=== PATIENT | female | born 1955 | race Caucasian/White ===

== ENCOUNTER 2020-02-02 17:28 | Emergency (ER) | payer MEDICARE, SELFPAY ==
--- NOTE | 2020-02-02 17:37 | ED.UPPEXIN ---
HPI - Extremity Injury (Upper) General Chief Complaint: Extremity Injury, Upper Stated Complaint: Left Wrist injury Time Seen by Provider: 02/02/20 17:38 Source: patient and RN notes reviewed Related Data Home Medications Medication Instructions Recorded Confirmed amoxicillin-pot clavulanate 1 tablet PO BID 02/02/20 02/02/20 atorvastatin 40 mg PO DAILY 02/02/20 02/02/20 bupropion HCl 300 mg PO DAILY 02/02/20 02/02/20 escitalopram oxalate 20 mg PO DAILY 02/02/20 02/02/20 esomeprazole magnesium 20 mg PO DAILY 02/02/20 02/02/20 gabapentin 100 mg PO DIRECTED 02/02/20 02/02/20 insulin glargine [Lantus Solostar 18 unit SUBCUT DAILY 02/02/20 02/02/20 U-100 Insulin] metoprolol tartrate 25 mg PO DIRECTED 02/02/20 02/02/20 mirabegron [Myrbetriq] 50 mg PO DIRECTED 02/02/20 02/02/20 pregabalin 75 mg PO DIRECTED 02/02/20 02/02/20 rivaroxaban [Xarelto] 20 mg PO DIRECTED 02/02/20 02/02/20 spironolactone 25 mg PO DAILY 02/02/20 02/02/20 Allergies Allergy/AdvReac Type Severity Reaction Status Date / Time No Known Allergies Allergy Unverified 07/19/17 13:00 ON LICENSE OF [facility] Family History Family History (Updated 10/26/11 @ 07:49 by DOCTOR UNKNOWN) Other Diabetes mellitus Family history of arthritis Family history of cardiovascular disease Family history of kidney disease Social History Social History Smoking status: Never smoker Alcohol intake: never Discharge Plan Discharge Prescriptions: No Action atorvastatin 40 mg tablet 40 mg PO DAILY RF: 0 spironolactone 25 mg tablet 25 mg PO DAILY RF: 0 gabapentin 100 mg capsule 100 mg PO DIRECTED RF: 0 amoxicillin-pot clavulanate 875-125 mg tablet 1 tablet PO BID RF: 0 esomeprazole magnesium 20 mg capsule,delayed release(DR/EC) 20 mg PO DAILY RF: 0 escitalopram oxalate 20 mg tablet 20 mg PO DAILY RF: 0 bupropion HCl 300 mg tablet extended release 24 hr 300 mg PO DAILY RF: 0 metoprolol tartrate 25 mg tablet 25 mg PO DIRECTED RF: 0 pregabalin 75 mg capsule 75 mg PO DIRECTED RF: 0 Lantus Solostar U-100 Insulin 100 unit/mL (3 mL) insulin pen 18 unit SUBCUT DAILY RF: 0 Xarelto 20 mg tablet 20 mg PO DIRECTED RF: 0 Myrbetriq 50 mg tablet extended release 24 hr 50 mg PO DIRECTED RF: 0
== END 2020-02-02 17:32 | disposition left against medical advice (07) ==
PROVIDERS: Emergency Provider Internal Medicine Hematology & Oncology; PCP Family Medicine
DX: Z53.21 Procedure and treatment not carried out due to patient leaving prior to being seen by health care provider (principal)
CPT/HCPCS: 99199

== ENCOUNTER → 2020-02-02 17:38 | Outpatient (CLI) | payer MEDICARE, SELFPAY ==
--- NOTE | ~2020-02-02 | XR_ITS ---
EXAMINATION: XR wrist LT min 3V DATE: 02/02/2020 18:01 INDICATION: Left wrist injury. TECHNIQUE: 4 views of left wrist were obtained. COMPARISON: None. FINDINGS: Bone alignment is normal. No fracture. There is diffuse osteopenia. There is moderate osteo arthritis of first carpometacarpal joint. IMPRESSION: 1. Moderate osteoarthritis of first carpometacarpal joint. Reviewed, dictated and finalized at location A.
== END ==
PROVIDERS: PCP Family Medicine; Visit Provider Family Medicine
DX: M19.032 Primary osteoarthritis, left wrist (principal)
CPT/HCPCS: 73110

== ENCOUNTER 2020-08-06 17:25 | Emergency (ER) | payer MEDICARE, SELFPAY | END 2020-08-06 17:45 | disposition left against medical advice (07) | PROVIDERS: Emergency Provider Nurse Practitioner; PCP Family Medicine | DX: Z53.21 Procedure and treatment not carried out due to patient leaving prior to being seen by health care provider (principal) | CPT/HCPCS: 99199 ==

== ENCOUNTER → 2021-08-07 13:30 | Outpatient (CLI) | payer MEDICARE, SELFPAY ==
--- NOTE | ~2021-08-07 | XR_ITS ---
XR chest 2V DATE: 08/07/2021 14:53 INDICATION: Covid. TECHNIQUE: 2 views COMPARISON: None FINDINGS: Heart size appears within normal range. Aortic calcification. No pulmonary infiltrate or consolidation, pleural effusion or pulmonary vascular congestion or pneumo thorax is detected. Lap band apparatus is noted. There is diffuse osteopenia. Degenerative change of the thoracic and lumbar spine. IMPRESSION: No active cardiopulmonary disease Osteopenia Reviewed, dictated and finalized at location A. 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
--- NOTE | ~2021-08-07 | XR_ITS ---
EXAMINATION: HAND-AMILCAR ARTHRITIS 3+VIEWS DATE: 08/07/2021 14:54 INDICATION: Rheumatoid arthritis with bilateral hand pain. TECHNIQUE: Posteroanterior, lateral, and oblique views of the left and of the right hands as well as a ballcatchers view of both hands were obtained. COMPARISON: None. FINDINGS: Normal alignment at the bilateral hands and wrists. Diffuse osteopenia. No fracture. Polyarticular os teoarthritis throughout both hands and wrists. Joint space narrowing is of severity at the left mild at the right distal radioulnar and radiocarpal joints, moderate severity at the bilateral first carpo metacarpal joints. Additional mild to moderate joint space narrowing at multiple bilateral metacarpop halangeal and interphalangeal joints. At the more severely affected joints are some tiny marginal ost eophytes consistent with at least a component of osteoarthritis. The joint space narrowing at many of the metacarpophalangeal joints appears relatively uniform which could be related to reported history of rheumatoid arthritis although there are no evident erosions to more specifically suggest this. Th ere does appear to be some periarticular soft tissue swelling about the bilateral second metacarpopha langeal joints, right greater than left as well as at the right fifth metacarpophalangeal joint. Scat tered vascular calcifications along the bilateral radial and ulnar arteries. IMPRESSION: 1. Mild to moderate polyarticular arthritis at the bilateral hands and wrists which could be due to o steoarthritis or osteoarthritis superimposed on rheumatoid arthritis although there are no erosions t o more specifically suggest rheumatoid or other inflammatory arthritis. 2. Osteopenia. 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 Mild to moderate polyarticular arthritis at the bilateral hands and wrists w hich could be due to osteoarthritis or osteoarthritis superimposed on rheumatoi d arthritis although there are no erosions to more specifically suggest rheumat oid or other inflammatory arthritis. 2. Osteopenia.
== END ==
DX: M85.841 Other specified disorders of bone density and structure, right hand (principal); M85.842 Other specified disorders of bone density and structure, left hand; M85.88 Other specified disorders of bone density and structure, other site
CPT/HCPCS: 71046; 73130

== ENCOUNTER 2023-05-01 14:37 | Inpatient (IN) | payer MEDICARE, SELFPAY ==
[2023-05-01] VITALS (37 sets, daily range): BP systolic 102–122; BP diastolic 43–87; PULSE 60–77; RESP 14–25; TEMP 36.2–36.9; O2SAT 90–98; BMI 44.1
--- NOTE | ~2023-05-01 | XR_ITS ---
EXAMINATION: XR chest 1V DATE: 05/01/2023 15:26 INDICATION: Altered mental status. Hypoglycemia. TECHNIQUE: A single frontal view of the chest was obtained. COMPARISON: Chest 2 views 08/07/2021 FINDINGS: There is a diffuse interstitial pattern with fullness of the сергей, consistent with mild pul monary edema. No pleural effusion or pneumothorax. Cardiomegaly is noted. There is a lap band of the proximal stomach. IMPRESSION: 1. Mild pulmonary edema. 2. Cardiomegaly. Reviewed, dictated and finalized at location A.
--- NOTE | ~2023-05-01 | XR_ITS ---
EXAMINATION: XR humerus RT INDICATION: Right shoulder pain, initial encounter TECHNIQUE: Two views of the right humerus are obtained on three radiographs. COMPARISON: None available FINDINGS: The bones are osteopenic which limits the sensitivity for fracture however none is seen. Th ere is mild cranial migration of the humeral head with respect to the glenoid, suggestive of chronic rotator cuff tear. There is mild separation at the acromioclavicular joint. IMPRESSION: 1. No acute osseous abnormality identified, sensitivity limited by osteopenia.. Reviewed, dictated and finalized at location F.
--- NOTE | ~2023-05-01 | CT_ITS ---
EXAMINATION: CT brain wo con DATE: 05/01/2023 15:22 INDICATION: Altered mental status. TECHNIQUE: Computed tomography (CT) of the head was performed without intravenous contrast. The mA wa s adjusted according to patient size. Iterative reconstruction technique was employed. The dose-lengt h product was 681.00 mGy-cm. COMPARISON: None FINDINGS: There is no intracranial hemorrhage, acute infarction, or abnormal intracranial mass lesion . There are scattered areas of low attenuation in the cerebral white matter. The ventricles are beena l in size. There is mild mucosal thickening in the paranasal sinuses. There are likely changes of ocu lar lens replacement surgeries. The mastoid air cells are normal. IMPRESSION: 1. Mild nonspecific cerebral white matter disease, which likely represents chronic small vessel ische wendy disease. Reviewed, dictated and finalized at location A. IMPRESSION: 1. 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
--- NOTE | ~2023-05-01 | XR_ITS ---
EXAMINATION: XR sm bowel follow through DATE: 05/02/2023 16:30 INDICATION: Small bowel obstruction. TECHNIQUE: Oral contrast was administered, and a time course of radiographs of the abdomen was obtain ed. Fluoroscopy of the small bowel was not performed. Fluoroscopy exposure time was 0 minutes. The to jairo number of images was 11. COMPARISON: CT abdomen and pelvis 05/01/2023 FINDINGS: There is a lap band of the proximal stomach. The nasogastric tube tip is in the stomach. There are mu ltiple dilated loops of small bowel. Transit time from the stomach to proximal colon was approximatel y 4.5 hours. IMPRESSION: 1. Dilated small bowel with delayed passage of contrast to the colon, consistent with adynamic ileus versus partial small bowel obstruction. Reviewed, dictated and finalized at location A. IMPRESSION: 1. Dilated small bowel with delayed passage of contrast to the colon, consisten t with adynamic ileus versus partial small bowel obstruction.
--- NOTE | ~2023-05-01 | XR_ITS ---
EXAMINATION: XR abdomen gastric tube insert INDICATION: Nasogastric tube placement TECHNIQUE: Portable AP [id number] at 2149 hours COMPARISON: None available FINDINGS: The nasogastric tube is in the stomach. Heart and medical is noted. There is mild pulmonary edema of the visualized lung bases. IMPRESSION: 1. Nasogastric tube in the stomach. Reviewed, dictated and finalized at location F.
--- NOTE | ~2023-05-01 | CT_ITS ---
EXAMINATION: CT abdomen pelvis wo con DATE: 05/01/2023 17:58 INDICATION: Abdominal distention TECHNIQUE: Computed tomography (CT) of the abdomen and pelvis was performed without intravenous contr ast. The dose-length product (DLP) was 1351.64 mGy-cm. Automated exposure control and iterative recon struction technique were employed. COMPARISON: None FINDINGS: There is a 5 mm nodule of the right middle lobe. There is mild atelectasis of the visualize d lung bases. Cardiomegaly is noted. There are healed and healing fractures of multiple left ribs. A gastric lap band is noted. The liver, spleen, pancreas, and left adrenal gland are normal. There is a 10 mm low density mass of the right adrenal gland, consistent with an adenoma. The gallbladder is co mpletely decompressed or absent. There is atrophy of the kidneys which demonstrate multiple areas of cortical scarring. No pathologically enlarged abdominal or pelvic lymph nodes are identified. Colonic diverticulosis is present without evidence of diverticulitis. There are multiple mildly dilated loop s of small bowel with air-fluid levels. No free intraperitoneal gas is identified. There is calcified atherosclerosis of the aorta and many of the other arteries. There is severe lumbar spondylosis. The re is an age-indeterminate L2 burst fracture. There are bridging osteophytes at multiple levels in th e visualized lower thoracic spine, consistent with diffuse idiopathic skeletal hyperostosis (DISH). IMPRESSION: 1. Dilated small bowel, consistent with ileus versus obstruction. 2. Right middle lobe nodule. If the patient has no risk factors for malignancy, no further follow up is required. If there are risk factors for malignancy (i.e., history of smoking, asbestos or radiati on exposure), consider followup CT in 12 months. Reviewed, dictated and finalized at location F. IMPRESSION: 1. Dilated small bowel, consistent with ileus versus obstruction. 2. Right middle lobe nodule. If the patient has no risk factors for malignancy, no further follow up is required. If there are risk factors for malignancy (i .e., history of smoking, asbestos or radiation exposure), consider followup CT in 12 months.
--- NOTE | 2023-05-01 14:37 | PC.NURSE ---
patient received 350 D10 en route. last BS 212. patient lethargic.
--- NOTE | 2023-05-01 14:41 | ECG_ITS ---
Measurements Intervals [place] Rate: 64 P: VT: 0 QRS: -78 QRSD: 169 T: 41 QT: 501 QTc: 517 Interpretive Statements PROBABLE ATRIAL FIBRILLATION RIGHT BUNDLE BRANCH BLOCK [120+ ms QRS DURATION, UPRIGHT V1, 40+ ms S IN I/aVL/V4/V5/V6] INFERIOR MYOCARDIAL INFARCTION , POSSIBLY ACUTE [40+ ms Q WAVE AND/OR ST/T ABNORMALITY IN II/aVF] ANTEROLATERAL MYOCARDIAL INFARCTION , OF INDETERMINATE AGE [40+ ms Q WAVE IN I/aVL/V3- V6] ABNORMAL ECG NO PREVIOUS ECG AVAILABLE FOR COMPARISON Electronically Signed On 05-01-2023 15:47:35 CDT by Nav Villa M.D.
[2023-05-01 14:46] LABS: Glucose Point of Care 163 mg/dl (65-105)
--- NOTE | 2023-05-01 15:00 | ED.RECABL ---
HPI - Recheck/Abnormal Lab/Rx General Chief Complaint: Recheck/Abnormal Lab/Rx Stated Complaint: low blood sugar History of Present Illness HPI narrative: Patient is a 68-year-old female with history of AFib, diabetes here with altered mental status and hypoglycemia. Patient was reportedly noted to be more drowsy around 2:00 a.m. this afternoon. Her staff checked her blood sugar and it was in the 40s. They gave her some oral glucose and it seemed to be dropping lower and EMS was called. EMS provided D10 with improvement of her blood sugars into the 200s. Patient was noted at her facility to have vomited several times. Patient is alert to answer some questions and noting that she feels funny . She denies any shortness of breath, fever, chills, chest pain, abdominal pain. She states that she usually gives herself insulin, is unsure lot when she last gave it. She endorses weakness but states that it is throughout her entire body and not worse on one side or the other. She denies any falls. Related Data Home Medications Medication Instructions Recorded Confirmed amoxicillin 875 mg-potassium 1 tablet PO BID 02/02/20 02/02/20 clavulanate 125 mg tablet atorvastatin 40 mg tablet 40 mg PO DAILY 02/02/20 02/02/20 bupropion HCl 300 mg 24 hr tablet, 300 mg PO DAILY 02/02/20 02/02/20 extended release escitalopram oxalate 20 mg tablet 20 mg PO DAILY 02/02/20 02/02/20 esomeprazole magnesium 20 mg 20 mg PO DAILY 02/02/20 02/02/20 capsule,delayed release gabapentin 100 mg capsule 100 mg PO DIRECTED 02/02/20 02/02/20 insulin glargine 100 unit/mL (3 18 unit subcut DAILY 02/02/20 02/02/20 mL) subcutaneous pen (Lantus Solostar U-100 Insulin) metoprolol tartrate 25 mg tablet 25 mg PO DIRECTED 02/02/20 02/02/20 mirabegron 50 mg tablet,extended 50 mg PO DIRECTED 02/02/20 02/02/20 release 24 hr (Myrbetriq) pregabalin 75 mg capsule 75 mg PO DIRECTED 02/02/20 02/02/20 rivaroxaban 20 mg tablet (Xarelto) 20 mg PO DIRECTED 02/02/20 02/02/20 spironolactone 25 mg tablet 25 mg PO DAILY 02/02/20 02/02/20 Allergies Allergy/AdvReac Type Severity Reaction Status Date / Time No Known Allergies Allergy Unverified 07/19/17 13:00 Review of Systems Review of Systems: ROS unobtainable: Yes unobtainable due to medical condition PMFSH Past Medical History Medical History (Updated 05/01/23 @ 20:20 by Justina Rolle MD) Anxiety Insomnia Family History Family History (Updated 10/26/11 @ 07:49 by DOCTOR UNKNOWN) Other Diabetes mellitus Family history of arthritis Family history of cardiovascular disease Family history of kidney disease Social History Social History Smoking status: Never smoker Alcohol intake: never Exam Narrative: GENERAL: Drowsy, dried vomit over her face, is arousable to answer basic questions and give limited history. HEAD: Normocephalic, atraumatic. EYES: PERRLA and EOMI. ENT: Nares clear. Mucous membranes moist. NECK: Supple. CHEST: Clear to auscultation. No respiratory distress. HEART: Regular rate and rhythm. Normal peripheral pulses. ABDOMEN: Soft, nontender EXTREMITIES: Normal range of motion. No edema. SKIN: Warm, dry, no rash. NEURO: No focal deficits. Moves all extremities equally, no lateralizing deficits. Course Course Emergency Course: Patient seen evaluated on EMS arrival. She is drowsy but is able to answer some basic questions. She is here for hypoglycemia from her facility. Glucose read by EMS EN route. Workup for altered mental status ordered. Will follow her blood sugars closely. Repeat blood glucose in the 90s, will start on D5 infusion. Lab work reviewed, patient has white blood cell count of 16.4, creatinine of 2.1, no comparison on file. Initial troponin negative. CT head negative, chest x-ray shows some mild pulmonary edema, otherwise within normal limits. UA consistent with UTI. Will give gram of rocephin.
[2023-05-01 15:22] LABS: Hematocrit 29.9 % (37.0-47.0); Hemoglobin 9.4 g/dL (12.0-15.0); Mean Corpuscular HGB Conc 31.4 g/dl (32-36); Mean Corpuscular Hemoglobin 30.4 pg (26-34); Mean Corpuscular Volume 96.8 fl (80-100); Mean Platelet Volume 9.9 fl (7.4-10.4); Platelet Count Result 337 k/mm3 (150-375); Red Blood Count 3.09 M/mm3 (4.2-5.4); Red Cell Distribution Width 17.3 % (11.5-14.5); White Blood Count 16.4 K/mm3 (4.5-10.0)
[2023-05-01 15:30] LABS: Ammonia < 9 umol/L (9-30)
[2023-05-01 15:32] LABS: Alanine Aminotransferase 11 U/L (6-35); Albumin Level 3.6 g/dL (3.5-5.1); Alkaline Phosphatase 134 U/L (38-126); Anion Gap 11 mmol/L (8-16); Aspartate Amino Transferase 21 U/L (14-36); Bilirubin,Total 0.8 mg/dL (0.2-1.3); Blood Urea Nitrogen 46 mg/dL (7-17); Calcium 8.7 mg/dL (8.4-10.2); Carbon Dioxide 25 mmol/L (22-30); Chloride 94 mmol/L (98-107); Estimated Glomerular Filt Rate 23; Glucose 129 mg/dL (65-110); Potassium 4.2 mmol/L (3.4-5.0); Sodium 130 mmol/L (137-145)
[2023-05-01 15:40] LABS: Glucose Point of Care 95 mg/dl (65-105)
[2023-05-01 15:43] LABS: Troponin I 0.019 ng/mL (0.000-0.034)
[2023-05-01 15:46] LABS: Lymphocytes Absolute Manual 0.65 K/mm3 (1.1-4.5); Monocytes Absolute Manual 1.96 K/mm3 (0.1-0.90); Monocytes Percent Manual 12 % (3-9); Neutrophils Percent Manual 84 % (46-73); Platelet Estimate Adequate (Adequate); Schistocytes None Seen (NORMAL); Total Cells Counted 100
[2023-05-01 15:47] LABS: Anisocytosis 2+ (NORMAL); Hypochromasia 1+ (NORMAL)
--- NOTE | 2023-05-01 15:50 | ECG_ITS ---
Measurements Intervals [place] Rate: 71 P: [place]: 0 QRS: -81 QRSD: 166 T: 64 QT: 475 QTc: 518 Interpretive Statements ATRIAL FIBRILLATION RIGHT BUNDLE BRANCH BLOCK [120+ ms QRS DURATION, UPRIGHT V1, 40+ ms S IN I/aVL/V4/V5/V6] INFERIOR MYOCARDIAL INFARCTION , OF INDETERMINATE AGE [40+ ms Q WAVE AND/OR ST/T ABNORMALITY IN II/aVF] ANTEROLATERAL MYOCARDIAL INFARCTION , OF INDETERMINATE AGE [40+ ms Q WAVE IN I/aVL/V3- V6] ABNORMAL ECG COMPARED TO ECG 05/01/2023 14:44:17 NO SIGNIFICANT CHANGES Electronically Signed On 05-02-2023 8:57:27 CDT by Nav Villa M.D.
[2023-05-01] MEDS: DEXTROSE 5%/0.9% SOD CHL 1,000 ML 100 ML IV CONT (15:51)
[2023-05-01 16:01] LABS: Thyroid Stimulating Hormone 0.976 uIU/mL (0.465-4.680)
[2023-05-01 16:04] LABS: Appearance Urine Cloudy (Clear); Bacteria Urine 4+ /hpf; Bilirubin Urine Negative (Negative); Blood Urine Negative (Negative); Color Urine Yellow (Yellow); Glucose Urine UA Negative (Negative); Ketones Urine Negative (Negative); Leukocyte Esterase Ur 2+ LEU/UL (Negative); Nitrate Urine Negative (Negative); Protein Urine Negative (Negative); RBC Urine 0-2 /hpf (0-2); Specific Grav Ur 1.011 (1.001-1.035); Squamous Epithelial Cell Urine None seen /hpf (Few); WBC Urine >100 /hpf; pH Urine 5.5 (5.0-9.0)
[2023-05-01 16:10] LABS: Add Urine Microscopic? YES
[2023-05-01] MEDS: ACETAMINOPHEN 500 MG TABLET 1000 MG PO (18:06)
[2023-05-01 19:27] LABS: Glucose Point of Care 60 mg/dl (65-105)
[2023-05-01] MEDS: DEXTROSE 50% 25 GM/50 ML SYRINGE IV PUSH (19:40)
--- NOTE | 2023-05-01 20:14 | PM.IMHP ---
H&P: HPI History of Present Illness Date/Time: 05/01/23 20:14 Chief Complaint: AMS Narrative: This is a 68-year-old female with past medical history significant for atrial fibrillation rate controlled and anticoagulated, insulin-dependent diabetes mellitus, generalized anxiety disorder, dyslipidemia, COPD. Patient was brought for evaluation to the emergency room due to altered mental status patient is currently residing at a senior living/rehabilitation was found to have a blood glucose in the 40's in emergency room repeat blood glucose was again low. Preliminary workup was significant for urinalysis with numerous WBCs present, a CT of abdomen and pelvis showed ileus. Patient is unable to give any history due to confusion, obtundation, delirium. EXAMINATION: CT abdomen pelvis wo con DATE: 05/01/2023 17:58 INDICATION: Abdominal distention TECHNIQUE: Computed tomography (CT) of the abdomen and pelvis was performed without intravenous contrast. The dose-length product (DLP) was 1351.64 mGy-cm. Automated exposure control and iterative reconstruction technique were employed. COMPARISON: None FINDINGS: There is a 5 mm nodule of the right middle lobe. There is mild atelectasis of the visualized lung bases. Cardiomegaly is noted. There are healed and healing fractures of multiple left ribs. A gastric lap band is noted. The liver, spleen, pancreas, and left adrenal gland are normal. There is a 10 mm low density mass of the right adrenal gland, consistent with an adenoma. The gallbladder is completely decompressed or absent. There is atrophy of the kidneys which demonstrate multiple areas of cortical scarring. No pathologically enlarged abdominal or pelvic lymph nodes are identified. Colonic diverticulosis is present without evidence of diverticulitis. There are multiple mildly dilated loops of small bowel with air-fluid levels. No free intraperitoneal gas is identified. There is calcified atherosclerosis of the aorta and many of the other arteries. There is severe lumbar spondylosis. There is an age-indeterminate L2 burst fracture. There are bridging osteophytes at multiple levels in the visualized lower thoracic spine, consistent with diffuse idiopathic skeletal hyperostosis (DISH). IMPRESSION: 1. Dilated small bowel, consistent with ileus versus obstruction. 2. Right middle lobe nodule. If the patient has no risk factors for malignancy, no further follow up is required.? If there are risk factors for malignancy (i.e., history of smoking, asbestos or radiation exposure), consider followup CT in 12 months. EXAMINATION: CT brain wo con DATE: 05/01/2023 15:22 INDICATION: Altered mental status. TECHNIQUE: Computed tomography (CT) of the head was performed without intravenous contrast. The mA was adjusted according to patient size. Iterative reconstruction technique was employed. The dose-length product was 681.00 mGy-cm. COMPARISON: None FINDINGS: There is no intracranial hemorrhage, acute infarction, or abnormal intracranial mass lesion. There are scattered areas of low attenuation in the cerebral white matter. The ventricles are normal in size. There is mild mucosal thickening in the paranasal sinuses. There are likely changes of ocular lens replacement surgeries. The mastoid air cells are normal. IMPRESSION: 1. Mild nonspecific cerebral white matter disease, which likely represents chronic small vessel ischemic disease. EXAMINATION: XR chest 1V DATE: 05/01/2023 15:26 INDICATION: Altered mental status. Hypoglycemia. TECHNIQUE: A single frontal view of the chest was obtained. COMPARISON: Chest 2 views 08/07/2021 FINDINGS: There is a diffuse interstitial pattern with fullness of the сергей, consistent with mild pulmonary edema. No pleural effusion or pneumothorax. Cardiomegaly is noted. There is a lap band of the proximal stomach. IMPRESSION: 1. Mild pulmonary edema. 2. Cardiomegaly. Review of Systems Review of Systems: JAVON echevarria
[2023-05-01 22:19] LABS: Glucose Point of Care 92 mg/dl (65-105)
--- NOTE | 2023-05-01 22:55 | ADMGEN ---
[id number] This patient, Kimberley Sharma, was admitted to IMU Room 204-01. Patient/family oriented to hospital policies and general routines including ID bracelet, bed and alarms, visiting hours, pain management, procedures, bathroom and other care routines, personal items, smoking policy, room service/diet, and visiting hours. Information on how to activate the Rapid Response Team has been discussed. Patient/Family are encouraged to report perceived risks to care and to ask questions if they do not understand what they are told or what they should do.
[2023-05-02] VITALS (19 sets, daily range): BP systolic 109–141; BP diastolic 46–96; PULSE 63–100; RESP 16–20; TEMP 36.2–36.6; O2SAT 92–97
[2023-05-02 00:27] LABS: Glucose Point of Care 60 mg/dl (65-105)
[2023-05-02] MEDS: DEXTROSE 50% 25 GM/50 ML SYRINGE IV PUSH (00:40)
[2023-05-02] MEDS: DEXTROSE 10% 1,000 ML 100 ML IV CONT (00:40)
[2023-05-02 02:17] LABS: Glucose Point of Care 117 mg/dl (65-105)
[2023-05-02 04:32] LABS: Glucose Point of Care 122 mg/dl (65-105)
[2023-05-02 05:19] LABS: Basophils Percent Auto 0.3 % (0.2-1.2); Eosinophils Absolute Auto 0.1 K/mm3 (0-0.3); Hematocrit 28.8 % (37.0-47.0); Hemoglobin 9.1 g/dL (12.0-15.0); Immature Granulocyte Absolute 0.03 K/mm3 (0.00-0.031); Immature Granulocyte Percent A 0.3 % (0-0.5); Lymphocytes Percent Auto 11.6 % (18.3-44.2); Mean Corpuscular HGB Conc 31.6 g/dl (32-36); Mean Corpuscular Hemoglobin 29.6 pg (26-34); Mean Corpuscular Volume 93.8 fl (80-100); Mean Platelet Volume 10.1 fl (7.4-10.4); Monocytes Percent Auto 9.9 % (2.6-8.5); Neutrophils Absolute Auto 7.9 K/mm3 (1.3-6.7); Neutrophils Percent Auto 76.9 % (45.5-73.1); Platelet Count Result 346 k/mm3 (150-375); Red Blood Count 3.07 M/mm3 (4.2-5.4); Red Cell Distribution Width 17.1 % (11.5-14.5); White Blood Count 10.3 K/mm3 (4.5-10.0)
[2023-05-02 05:40] LABS: Anion Gap 10 mmol/L (8-16); Blood Urea Nitrogen 46 mg/dL (7-17); Calcium 8.5 mg/dL (8.4-10.2); Carbon Dioxide 25 mmol/L (22-30); Chloride 98 mmol/L (98-107); Estimated CRCL calculation 26 ml/min; Estimated Glomerular Filt Rate 25; Glucose 112 mg/dL (65-110); Potassium 3.8 mmol/L (3.4-5.0); Sodium 133 mmol/L (137-145)
[2023-05-02 05:49] LABS: Glucose Point of Care 128 mg/dl (65-105)
[2023-05-02 08:21] LABS: Glucose Point of Care 135 mg/dl (65-105)
[2023-05-02] MEDS: PANTOPRAZOLE SODIUM IV 40 MG VIAL IV PUSH (09:34)
--- NOTE | 2023-05-02 10:58 | PM.CNGS ---
Assessment and Plan Assessment and plan (1) Ileus: Code(s): K56.7 - Ileus, unspecified Status: Acute Assessment and Plan: CT showed dilated small bowel suggesting ileus versus small bowel obstruction. She had bowel function yesterday and was passing flatus overnight. This could be an ileus secondary to her urinary tract infection, but given her history of extensive abdominal surgeries and multiple recent hospitalizations for small bowel obstructions, we will get a water-soluble small bowel follow through today to further assess for an obstruction. She does not appear to have a high-grade small bowel obstruction, and she has no diffuse peritoneal signs on exam. Continue NG tube decompression, IV fluids, bowel rest, and analgesics for now while awaiting results of small bowel follow through. (2) Acute urinary tract infection: Code(s): N39.0 - Urinary tract infection, site not specified Status: Acute Assessment and Plan: Continue IV antibiotics per primary service. (3) Hypoglycemia: Code(s): E16.2 - Hypoglycemia, unspecified Status: Acute (4) Atrial fibrillation: Code(s): I48.91 - Unspecified atrial fibrillation Status: Chronic (5) Anticoagulant long-term use: Code(s): Z79.01 - halfway (current) use of anticoagulants Status: Acute Assessment and Plan: Xarelto currently on hold (6) Morbid obesity with BMI of 40.0-44.9, adult: Code(s): E66.01 - Morbid (severe) obesity due to excess calories; Z68.41 - Body mass index [BMI] 40.0-44.9, adult Status: Acute (7) Insulin dependent diabetes mellitus: Status: Chronic (8) Parkinson's disease: Code(s): G20.A1 - Parkinson's disease without dyskinesia, without mention of fluctuations Status: Chronic (9) Rheumatoid arthritis: Code(s): M06.9 - Rheumatoid arthritis, unspecified Status: Chronic (10) Immunosuppression due to drug therapy: Code(s): D84.821 - Immunodeficiency due to drugs; Z79.899 - Other group home (current) drug therapy Status: Chronic Plan I have discussed the patient's case and plan of care with Dr. Vale. Thank you for allowing us to see the patient in consultation and we will continue to follow along with you. History of Present Illness Consult details Consult date: 05/02/23 Reason for consult: other (Small-bowel obstruction versus ileus) Requesting physician: Justina Rolle MD Narrative: This is a 68-year-old woman who presented to the ER last night from a residential facility due to hypoglycemia and altered mental status. She has a history of multiple medical problems and is currently on Xarelto for chronic atrial fibrillation. Patient reports having 1 episode of diarrhea about a week ago, but otherwise her bowel movements normalized. She then had multiple episodes of vomiting 2 days ago. She reports this appeared bilious. Yesterday, she avoided the eating and tried taking in Ensure, which quickly vomited again. Denies any abdominal pain. At the residential facility, she appeared drowsy and staff checked her blood sugar and was found to be hypoglycemic. They gave her oral glucose and EMS was called. She was brought into the ER for further evaluation. In the ER, [place] [address], sodium 130, BUN 46, creatinine 2.1, glucose 129. Urinalysis suggests urinary tract infection. Head CT negative for any acute changes. Chest x-ray shows mild pulmonary edema, cardiomegaly. She appeared to have some abdominal distension and subsequently a CT of the abdomen and pelvis without contrast ordered. This showed dilated small bowel, consistent with ileus versus obstruction. Incidentally noted was a right middle lobe nodule. Our service was consulted by the ED physician. She had an NG tube placed in the ER. She has been admitted and started on IV antibiotics for the urinary tract infection. It appears she had
[2023-05-02 11:13] LABS: Glucose Point of Care 149 mg/dl (65-105)
--- NOTE | 2023-05-02 14:45 | PM.IMPN ---
Progress Note: A&P Assessment and Plan (1) Immunosuppression due to drug therapy: Code(s): D84.821 - Immunodeficiency due to drugs; Z79.899 - Other termite helper (current) drug therapy Status: Chronic (2) Rheumatoid arthritis: Code(s): M06.9 - Rheumatoid arthritis, unspecified Status: Chronic (3) Insulin dependent diabetes mellitus: Status: Chronic (4) Morbid obesity with BMI of 40.0-44.9, adult: Code(s): E66.01 - Morbid (severe) obesity due to excess calories; Z68.41 - Body mass index [BMI] 40.0-44.9, adult Status: Acute (5) Anticoagulant long-term use: Code(s): Z79.01 - terminal clerk (current) use of anticoagulants Status: Acute (6) Atrial fibrillation: Code(s): I48.91 - Unspecified atrial fibrillation Status: Chronic (7) AMS (altered mental status): Code(s): R41.82 - Altered mental status, unspecified Status: Acute (8) Hypoglycemia: Code(s): E16.2 - Hypoglycemia, unspecified Status: Acute (9) Acute urinary tract infection: Code(s): N39.0 - Urinary tract infection, site not specified Status: Acute (10) Ileus: Code(s): K56.7 - Ileus, unspecified Status: Acute Plan 68F w/ PMH morbid obesity, IDDM, anxiety, a fib on anticoagulation, RA on immunosuppression, parkinson's disease, presents with altered mental status from SNF. 1) altered mental status - likely 2/2 to UTI, hypoglycemia - resolved. CTM 2) hypoglycemia - she vomited once prior to presentation and then shortly after had hypoglycemia - cont d10 since she is NPO. accuchecks q2 hours. reevaluate after some time again - hold insulin 3) IDDDM - holding insulin - accuchecks 4) UTI w/ sespis w/o shock - pending urine cultures - ceftriaxone started 05/01 - WBC 16.4 --> 10.3 - check pro lacy in morning 5) Ileus vs SBO - vomited once prior to admission, but she denies any abdominal pain or nausea - general surgery consulted. currently with NG tube and awaiting small bowel follow through results - benign abdominal exam 6) a fib - start heparin tomorrow if still NPO - rate controlled FEN: NPO. D10. NG tube inserted GI prophylaxis: protonix DVT prophylaxis: ICD's, if still NPO by tomorrow place her on heparin gtt for stroke prophylaxis, for now HSC 5000 TID Lines: pIV Code Status: Full code Dispo: she was at rehab/SNF. she should likely return there and family was planning to get her to assisted living [facility] More than 35 minutes spent on chart review, patient interaction and assessment and plan. Subjective Date/time seen: 05/02/23 14:45 Interval history: NAOE. pt reports she feels normal. she doesn't remember being confused. she had vomited bile once before presenting. she denies SOB, chest pain, abdominal pain, nausea (she is hungry), diarrhea. Review of Systems Cardiovascular: Cardiovascular: Denies chest pain and Denies dyspnea Respiratory: Respiratory: Denies cough and Denies dyspnea Gastrointestinal: Gastrointestinal: Denies abdominal pain and Denies vomiting Exam Const: General: no acute distress, alert and Physically active Other: obese HENMT: Other: NG tube inserted Resp: Effort & Inspection: normal respiratory effort Auscultation: clear to auscultation bilaterally Cardio: Rate: regular rate Rhythm: regular rhythm Heart sounds: S1 normal heart sound present and S2 normal heart sound present GI: Inspection: non-distended GI Palp: No abdominal tenderness Auscultation: normal bowel sounds Extrem: Right upper extremity: no edema Objective Data Vital Signs Vital Signs: Vital Signs - 24 hr 05/01/23 15:03 05/01/23 15:25 05/01/23 15:38 Temperature Pulse Rate 62 66 65 Respiratory Rate 19 16 17 Blood Pressure Pulse Oximetry 91 96 Oxygen Delivery Oxygen Flow Rate Fraction of Inspired Oxygen 05/01/23 15:45 05/01/23 15:55 05/01/23 16:00 Temperature Pulse Rate 67 66 71
[2023-05-02 14:54] LABS: Glucose Point of Care 159 mg/dl (65-105)
[2023-05-02] MEDS: cefTRIAXone 2 GM/NS 100 ML 2 GM/100 ML BAG IVPB (15:15)
[2023-05-02] MEDS: DEXTROSE 5%/0.9% SOD CHL 1,000 ML 100 ML IV CONT (17:24)
[2023-05-02 18:39] LABS: Glucose Point of Care 173 mg/dl (65-105)
[2023-05-02 21:12] LABS: Glucose Point of Care 201 mg/dl (65-105)
[2023-05-02] MEDS: HEPARIN SODIUM 5,000 UNITS/ML VIAL 5000 UNITS SUB-Q (21:42)
[2023-05-02 22:22] LABS: Glucose Point of Care 197 mg/dl (65-105)
[2023-05-03] VITALS (14 sets, daily range): BP systolic 119–147; BP diastolic 51–75; PULSE 75–104; RESP 16–20; TEMP 36.1–36.8; O2SAT 90–99
[2023-05-03] MEDS: DEXTROSE 5% 1,000 ML 1,000 ML 100 ML IVPB (02:56)
[2023-05-03] MEDS: DEXTROSE 5%/0.9% SOD CHL 1,000 ML 100 ML IV CONT (03:00)
[2023-05-03 04:57] LABS: Basophils Absolute Auto 0.1 K/mm3 (0.0-0.1); Basophils Percent Auto 0.7 % (0.2-1.2); Eosinophils Absolute Auto 0.1 K/mm3 (0-0.3); Eosinophils Percent Auto 1.3 % (0-4.4); Hematocrit 26.6 % (37.0-47.0); Hemoglobin 8.3 g/dL (12.0-15.0); Immature Granulocyte Absolute 0.05 K/mm3 (0.00-0.031); Immature Granulocyte Percent A 0.6 % (0-0.5); Lymphocytes Absolute Auto 1.23 K/mm3 (0.9-3.2); Lymphocytes Percent Auto 13.6 % (18.3-44.2); Mean Corpuscular HGB Conc 31.2 g/dl (32-36); Mean Platelet Volume 9.9 fl (7.4-10.4); Monocytes Absolute Auto 0.9 K/mm3 (0.1-0.6); Monocytes Percent Auto 10.4 % (2.6-8.5); Neutrophils Absolute Auto 6.6 K/mm3 (1.3-6.7); Neutrophils Percent Auto 73.4 % (45.5-73.1); Platelet Count Result 321 k/mm3 (150-375); Red Blood Count 2.77 M/mm3 (4.2-5.4); Red Cell Distribution Width 17.2 % (11.5-14.5)
[2023-05-03 05:08] LABS: Anion Gap 4 mmol/L (8-16); Blood Urea Nitrogen 33 mg/dL (7-17); Calcium 8.7 mg/dL (8.4-10.2); Carbon Dioxide 28 mmol/L (22-30); Chloride 104 mmol/L (98-107); Estimated CRCL calculation 32 ml/min; Estimated Glomerular Filt Rate 32; Glucose 144 mg/dL (65-110); Magnesium 1.8 mg/dL (1.6-2.3); Phosphorus 3.2 mg/dL (2.5-4.5); Potassium 3.4 mmol/L (3.4-5.0); Sodium 136 mmol/L (137-145)
[2023-05-03 05:19] LABS: Procalcitonin 0.1 ng/mL
[2023-05-03] MEDS: HEPARIN SODIUM 5,000 UNITS/ML VIAL 5000 UNITS SUB-Q ×2 (05:39→14:08)
[2023-05-03] MEDS: PANTOPRAZOLE SODIUM IV 40 MG VIAL IV PUSH (08:50)
[2023-05-03 11:44] LABS: Glucose Point of Care 303 mg/dl (65-105)
[2023-05-03] MEDS: POTASSIUM CHLORIDE 20 MEQ PACKET (FOR LIQUID) 40 MEQ PO (12:21)
--- NOTE | 2023-05-03 14:14 | PM.PNGS ---
Progress Note: A&P Assessment and Plan (1) Ileus: Code(s): K56.7 - Ileus, unspecified Status: Acute Assessment and Plan: Patient most likely had a small bowel ileus due to her urinary tract infection. No obvious evidence of a high-grade mechanical small bowel obstruction is seen on small-bowel series. She is now having multiple bowel movements and tolerating diet. No surgical intervention is needed. Disposition as per hospitalist service. Surgery will sign off. Subjective Subjective Date/Time Seen: 05/03/23 14:14 Interval history: Patient is doing very well today. She is starting to have bowel movements. Multiple bowel movements today. She tolerated full liquids and then regular food for lunch. Small bowel series yesterday showed transit of contrast into the colon at 4.5hours which was delayed but showed no evidence of high-grade obstruction. White blood cell count is normal today and she is afebrile. She has no complaints of abdominal pain. Exam GI: Other: Abdomen is soft and nondistended. Nontender. Exam is benign. Objective Data Vital Signs Vital Signs: Vital Signs - 24 hr 05/02/23 15:49 05/02/23 16:00 05/02/23 16:00 Temperature 36.4 C L Pulse Rate 75 88 Respiratory Rate 20 Blood Pressure 139/96 H Pulse Oximetry 94 Oxygen Delivery Room Air Oxygen Flow Rate 05/02/23 18:00 05/02/23 19:54 05/02/23 20:00 Temperature 36.6 C Pulse Rate 97 89 89 Respiratory Rate 16 16 Blood Pressure 141/72 H Pulse Oximetry 92 92 Oxygen Delivery Room Air Oxygen Flow Rate 05/02/23 20:00 05/02/23 22:00 05/02/23 23:32 Temperature 36.2 C L Pulse Rate 94 100 96 Respiratory Rate 18 Blood Pressure 127/53 L Pulse Oximetry 92 Oxygen Delivery Oxygen Flow Rate 05/03/23 00:00 05/03/23 00:00 05/03/23 02:00 Temperature Pulse Rate 96 91 100 Respiratory Rate 18 Blood Pressure Pulse Oximetry 92 Oxygen Delivery Room Air Oxygen Flow Rate 05/03/23 04:00 05/03/23 04:00 05/03/23 04:00 Temperature 36.4 C Pulse Rate 77 77 75 Respiratory Rate 18 18 Blood Pressure 121/51 L Pulse Oximetry 94 94 Oxygen Delivery Room Air Oxygen Flow Rate 05/03/23 06:07 05/03/23 07:28 05/03/23 11:19 Temperature 36.7 C 36.8 C Pulse Rate 80 87 81 Respiratory Rate 16 19 Blood Pressure 132/59 L 147/63 H Pulse Oximetry 90 99 Oxygen Delivery Oxygen Flow Rate 05/03/23 08:00 05/03/23 08:00 05/03/23 10:00 Temperature Pulse Rate 83 91 Respiratory Rate Blood Pressure Pulse Oximetry 92 Oxygen Delivery Nasal Cannula Oxygen Flow Rate 2 05/03/23 12:00 05/03/23 12:00 05/03/23 14:00 Temperature Pulse Rate 82 84 Respiratory Rate Blood Pressure Pulse Oximetry 95 Oxygen Delivery Nasal Cannula Oxygen Flow Rate 2 Intake/Output Intake/Output: Intake & Output 04/30/23 05/01/23 05/02/23 05/03/23 23:59 23:59 23:59 23:59 Intake Total 50 1100 3520 Output Total 400 300 Balance -350 1100 3220 Meds/Results Medications: Active Medications Generic Name Dose Route Start Last Admin Trade Name Freq PRN Reason Stop Dose Admin Albuterol 2 puff 05/02/23 00:31 Albuterol Sulfate (*Sp) Aerosol 1 Puff INHALATION QID PRN Wheezing Dextrose 12.5 gm 05/02/23 00:33 Dextrose 50% 25 Gm/50 Ml Syringe IV PUSH PRN PRN Hypoglycemia Protocol Glucagon 1 mg 05/02/23 00:33 Glucagon For Inj 1 Mg Vial IM PRN PRN Hypoglycemia Protocol Glucose 15 gm 05/02/23 00:33 Glucose Oral Gel 15 Gm Of Glucse In 37.5 Gm Tube PO PRN PRN Hypoglycemia Protocol Heparin Sodium (Porcine) 5,000 units 05/02/23 22:00 05/03/23 14:08 Heparin Sodium 5,000 Units/Ml Vial SUB-Q 5,000 units Q8HR STEVEN Administration Dextrose 1,000 mls @ 100 mls/hr 05/02/23 00:33 05/03/23 02:56 Dextrose 5% 1,000 Ml IVPB 100 mls/hr PRN PRN Administration
[2023-05-03] MEDS: cefTRIAXone 2 GM/NS 100 ML 2 GM/100 ML BAG IVPB (14:16)
[2023-05-03 14:19] LABS: Glucose Point of Care 264 mg/dl (65-105)
--- NOTE | 2023-05-03 15:35 | PM.IMPN ---
Progress Note: A&P Assessment and Plan (1) Immunosuppression due to drug therapy: Code(s): D84.821 - Immunodeficiency due to drugs; Z79.899 - Other watermaster (current) drug therapy Status: Chronic (2) Rheumatoid arthritis: Code(s): M06.9 - Rheumatoid arthritis, unspecified Status: Chronic (3) Parkinson's disease: Code(s): G20.A1 - Parkinson's disease without dyskinesia, without mention of fluctuations Status: Chronic (4) Insulin dependent diabetes mellitus: Status: Chronic (5) Ileus: Code(s): K56.7 - Ileus, unspecified Status: Acute Plan 68F w/ PMH morbid obesity, IDDM, anxiety, a fib on anticoagulation, RA on immunosuppression, parkinson's disease, presents with altered mental status from SNF. 1) altered mental status - likely 2/2 to UTI, hypoglycemia - resolved. CTM 2) hypoglycemia, IDDM - she vomited once prior to presentation and then shortly after had hypoglycemia - resolved. LDISS started with accuchecks. she is eating plenty 3) UTI w/ sespis w/o shock - pending urine cultures - ceftriaxone started 05/01 - WBC 16.4 --> 10.3 - discharge on PO abx. improved 5) Ileus - vomited once prior to admission, but she denies any abdominal pain or nausea - general surgery consulted. NG tube placed and removed. she is passing stool and tolerating diet - benign abdominal exam 6) a fib - restart AC on 05/03 - rate controlled 05/03 restart all home meds since NG tube is out and she's tolerating diet FEN: diabetic diet. saline lock IV GI prophylaxis: protonix DVT prophylaxis: ICD's and her usual AC Lines: pIV Code Status: Full code she is returning to rehab tomorrow pending insurance auth Subjective Date/time seen: 05/03/23 15:35 Interval history: NAOE. pt is tolerating diet, and having BM's. NG tube out. surgery cleared her for discharge. she has no complaints Review of Systems Review of Systems: All systems reviewed & are unremarkable except as noted in HPI and below Exam Const: General: comfortable and no acute distress Eyes: Pupils: Equal, round and reactive pupils present Resp: Effort & Inspection: normal respiratory effort Auscultation: clear to auscultation bilaterally Cardio: Rate: regular rate Rhythm: regular rhythm GI: Inspection: non-distended GI Palp: Yes Soft to palpation and No Tenderness to palpation present (GI) Extrem: General: no edema Objective Data Vital Signs Vital Signs: Vital Signs - 24 hr 05/02/23 15:49 05/02/23 16:00 05/02/23 16:00 Temperature 97.5 F L Pulse Rate 75 88 Respiratory Rate 20 Blood Pressure 139/96 H Pulse Oximetry 94 Oxygen Delivery Room Air Oxygen Flow Rate 05/02/23 18:00 05/02/23 19:54 05/02/23 20:00 Temperature 98 F Pulse Rate 97 89 89 Respiratory Rate 16 16 Blood Pressure 141/72 H Pulse Oximetry 92 92 Oxygen Delivery Room Air Oxygen Flow Rate 05/02/23 20:00 05/02/23 22:00 05/02/23 23:32 Temperature 97.2 F L Pulse Rate 94 100 96 Respiratory Rate 18 Blood Pressure 127/53 L Pulse Oximetry 92 Oxygen Delivery Oxygen Flow Rate 05/03/23 00:00 05/03/23 00:00 05/03/23 02:00 Temperature Pulse Rate 96 91 100 Respiratory Rate 18 Blood Pressure Pulse Oximetry 92 Oxygen Delivery Room Air Oxygen Flow Rate 05/03/23 04:00 05/03/23 04:00 05/03/23 04:00 Temperature 97.6 F Pulse Rate 77 77 75 Respiratory Rate 18 18 Blood Pressure 121/51 L Pulse Oximetry 94 94 Oxygen Delivery Room Air Oxygen Flow Rate 05/03/23 06:07 05/03/23 07:28 05/03/23 11:19 Temperature 98.1 F 98.3 F Pulse Rate 80 87 81 Respiratory Rate 16 19 Blood Pressure 132/59 L 147/63 H Pulse Oximetry 90 99 Oxygen Delivery Oxygen Flow Rate 05/03/23 08:00 05/03/23 08:00 05/03/23 10:00 Temperature Pulse Rate 83 91 Respiratory Rate Blood Pressure Pulse Oximetry 92 Oxygen Delivery Nasal Cannula Oxygen Flow Ra
[2023-05-03 16:12] LABS: Glucose Point of Care 251 mg/dl (65-105)
[2023-05-03] MEDS: CARBIDOPA/LEVODOPA 25/100 MG CR TABLET 1 TABLET PO (16:53)
[2023-05-03] MEDS: FUROSEMIDE 20 MG TABLET PO (16:53)
[2023-05-03] MEDS: RIVAROXABAN 20 MG TABLET PO (16:53)
[2023-05-03] MEDS: GABAPENTIN 100 MG CAPSULE PO (16:53)
[2023-05-03] MEDS: INSULIN ASPART (*BKC) 100 UNITS/ML SUB-Q ×2 (16:54→20:25)
[2023-05-03] MEDS: HYDROXYCHLOROQUINE SULFATE 200 MG TABLET PO (17:01)
--- NOTE | 2023-05-03 17:36 | PC.NURSE ---
Pt received from IMU at 17:35. Pt oriented to unit policy and procedures.
--- NOTE | 2023-05-03 17:45 | PC.NURSE ---
This patient, Kimberley Sharma, was transferred to [[facility]- ] on 05/03/23 at 1727. Personal belongings sent with patient. Appropriate documentation sent with patient.
[2023-05-03] MEDS: ACETAMINOPHEN 325 MG TABLET 650 MG PO (18:53)
[2023-05-03] MEDS: clonazePAM (*CRX) 0.5 MG TABLET PO (20:24)
[2023-05-03 21:02] LABS: Glucose Point of Care 147 mg/dl (65-105)
[2023-05-03 21:11] LABS: Glucose Point of Care 170 mg/dl (65-105)
[2023-05-04 06:00] VITALS: BP 126/60; PULSE 76; RESP 18; TEMP 36.3; O2SAT 93
[2023-05-04 07:42] LABS: Glucose Point of Care 115 mg/dl (65-105)
[2023-05-04] MEDS: CARBIDOPA/LEVODOPA 25/100 MG CR TABLET 1 TABLET PO ×3 (09:14→16:38)
[2023-05-04] MEDS: SPIRONOLACTONE 25 MG TABLET PO (09:15)
[2023-05-04] MEDS: buPROPion HCL XL (24 HR) 150 MG TABCR 300 MG PO (09:15)
[2023-05-04] MEDS: GABAPENTIN 100 MG CAPSULE PO ×2 (09:15→16:38)
[2023-05-04] MEDS: HYDROXYCHLOROQUINE SULFATE 200 MG TABLET PO ×2 (09:15→16:38)
[2023-05-04] MEDS: MIRABEGRON 25 MG ER TABLET PO (09:15)
[2023-05-04] MEDS: dilTIAZem HCL CD 240 MG CAP.24HR PO (09:15)
[2023-05-04] MEDS: FUROSEMIDE 20 MG TABLET PO ×2 (09:15→16:38)
[2023-05-04] MEDS: PANTOPRAZOLE SODIUM IV 40 MG VIAL IV PUSH (09:17)
[2023-05-04] MEDS: INSULIN GLARGINE (*BKC) 100 UNITS/ML 18 UNITS SUB-Q (09:18)
--- NOTE | 2023-05-04 11:46 | PM.DS ---
DS: Admitting Diagnosis Discharge Date 05/04 Admitting Diagnosis hypoglycemia and AMS DS: Discharge Diagnosis Discharge Diagnosis (1) Morbid obesity with BMI of 40.0-44.9, adult: Code(s): E66.01 - Morbid (severe) obesity due to excess calories; Z68.41 - Body mass index [BMI] 40.0-44.9, adult Status: Acute (2) Insulin dependent diabetes mellitus: Status: Chronic (3) Parkinson's disease: Code(s): G20.A1 - Parkinson's disease without dyskinesia, without mention of fluctuations Status: Chronic (4) Rheumatoid arthritis: Code(s): M06.9 - Rheumatoid arthritis, unspecified Status: Chronic (5) Immunosuppression due to drug therapy: Code(s): D84.821 - Immunodeficiency due to drugs; Z79.899 - Other terminal manager (current) drug therapy Status: Chronic (6) AMS (altered mental status): Code(s): R41.82 - Altered mental status, unspecified Status: Acute (7) Hypoglycemia: Code(s): E16.2 - Hypoglycemia, unspecified Status: Acute (8) Atrial fibrillation: Code(s): I48.91 - Unspecified atrial fibrillation Status: Chronic (9) Ileus: Code(s): K56.7 - Ileus, unspecified Status: Acute DS: Summary Hospital Course Hospital Course: 68F w/ PMH morbid obesity, IDDM, anxiety, a fib on anticoagulation, RA on immunosuppression, parkinson's disease, presents with altered mental status from SNF. She vomited at the [facility], then shortly after developed hypoglycemia and altered mental status. During her stay she was given D5 then D10 and her hypoglycemia and AMS resolved. She was also treated for UTI with ceftriaxone and her sepsis resolved. DC on 3 more days of keflex. concurrently, she was found to have ileus vs SBO on Ct scan. surgery consulted. NG tube placed and removed. she likely did not have complete SBO. tolerating diet and having good BMs on 05/04 therefore she will be discharged [facility] in [facility] condition. Full Code. Time Spent with Patient Time attestation: Total time spent providing and/or coordinating discharge services: Exam Const: General: comfortable and no acute distress Eyes: Pupils: Equal, round and reactive pupils present Resp: Effort & Inspection: normal respiratory effort Cardio: Rate: regular rate Rhythm: regular rhythm GI: Inspection: non-distended GI Palp: Yes Soft to palpation, No Firmness to palpation present (GI), No Tenderness to palpation present (GI) and No Guarding due to palpation present (GI) Auscultation: normal bowel sounds Extrem: General: no edema DS: Data Data Completed and Pending Labs on day of discharge: Labs from last 24 hours 05/04/23 05/03/23 05/03/23 07:31 21:08 20:01 POC Capillary Glucose 115 H 170 H 147 H 05/03/23 05/03/23 16:04 14:09 POC Capillary Glucose 251 H 264 H Discharge Plan Discharge Attending physician on discharge: Lyssa Carbajal Consulting providers: Radha Aguilar Discharging Clinician: Lyssa Carbajal Patient Disposition: SNF Activity: may shower Diet: as tolerated Discharge Instructions: Hypoglycemia Patient Instructions: Rivaroxaban (By mouth), Heart Failure (IP) Stand Alone Forms: General Discharge Information Discharge Medications: Continued atorvastatin 40 mg tablet 40 mg PO DAILY spironolactone 25 mg tablet 25 mg PO DAILY gabapentin 100 mg capsule 100 mg PO BID bupropion HCl 300 mg tablet extended release 24 hr 300 mg PO DAILY insulin glargine [Lantus Solostar U-100 Insulin] 100 unit/mL (3 mL) insulin pen 18 unit SUBCUT DAILY Xarelto 20 mg tablet 20 mg PO DAILY Myrbetriq 50 mg tablet extended release 24 hr 25 mg PO DAILY furosemide 40 mg tablet 20 mg PO BID cyanocobalamin (vitamin B-12) 1,000 mcg Tablet 1,000 mcg PO DAILY diltiazem HCl 240 mg capsule,extended release 24 hr 240 mg PO DAILY allopurinol 100
[2023-05-04 11:48] LABS: Glucose Point of Care 226 mg/dl (65-105)
[2023-05-04] MEDS: INSULIN ASPART (*BKC) 100 UNITS/ML SUB-Q (13:25)
[2023-05-04 14:00] VITALS: BP 118/50; PULSE 81; RESP 22; TEMP 36.8; O2SAT 94
[2023-05-04 16:30] LABS: Glucose Point of Care 108 mg/dl (65-105)
[2023-05-04] MEDS: RIVAROXABAN 20 MG TABLET PO (16:38)
[2023-05-04] MEDS: cefTRIAXone 2 GM/NS 100 ML 2 GM/100 ML BAG IVPB (16:40)
[2023-05-04 22:00] VITALS: BP 132/72; PULSE 78; RESP 14; TEMP 35.9; O2SAT 96
[2023-05-04 22:23] LABS: Glucose Point of Care 162 mg/dl (65-105)
[2023-05-05 05:56] VITALS: BP 126/51; PULSE 84; RESP 18; TEMP 36.1; O2SAT 95
[2023-05-05 07:37] LABS: Glucose Point of Care 112 mg/dl (65-105)
[2023-05-05] MEDS: INSULIN GLARGINE (*BKC) 100 UNITS/ML 18 UNITS SUB-Q (08:46)
[2023-05-05] MEDS: HYDROXYCHLOROQUINE SULFATE 200 MG TABLET PO ×2 (08:48→17:57)
[2023-05-05] MEDS: buPROPion HCL XL (24 HR) 150 MG TABCR 300 MG PO (08:48)
[2023-05-05] MEDS: FUROSEMIDE 20 MG TABLET PO ×2 (08:48→17:57)
[2023-05-05] MEDS: dilTIAZem HCL CD 240 MG CAP.24HR PO (08:48)
[2023-05-05] MEDS: SPIRONOLACTONE 25 MG TABLET PO (08:48)
[2023-05-05] MEDS: CARBIDOPA/LEVODOPA 25/100 MG CR TABLET 1 TABLET PO ×3 (08:48→17:57)
[2023-05-05] MEDS: GABAPENTIN 100 MG CAPSULE PO ×2 (08:48→17:57)
[2023-05-05] MEDS: MIRABEGRON 25 MG ER TABLET PO (08:48)
[2023-05-05] MEDS: PANTOPRAZOLE SODIUM IV 40 MG VIAL IV PUSH (08:58)
--- NOTE | 2023-05-05 10:01 | PM.IMPN ---
Progress Note: A&P Assessment and Plan (1) Rheumatoid arthritis: Code(s): M06.9 - Rheumatoid arthritis, unspecified Status: Chronic (2) Parkinson's disease: Code(s): G20.A1 - Parkinson's disease without dyskinesia, without mention of fluctuations Status: Chronic (3) Insulin dependent diabetes mellitus: Status: Chronic (4) Morbid obesity with BMI of 40.0-44.9, adult: Code(s): E66.01 - Morbid (severe) obesity due to excess calories; Z68.41 - Body mass index [BMI] 40.0-44.9, adult Status: Acute (5) Ileus: Code(s): K56.7 - Ileus, unspecified Status: Acute (6) Hypoglycemia: Code(s): E16.2 - Hypoglycemia, unspecified Status: Acute Plan 68F w/ PMH morbid obesity, IDDM, anxiety, a fib on anticoagulation, RA on immunosuppression, parkinson's disease, presents with altered mental status from SNF. She vomited at the [facility], then shortly after developed hypoglycemia and altered mental status. hypoglycemia resolved. ileus/sbo resolved. tolerating diet awaiting insurance clearance to return to rehab. cardiac diet on protonix on xarelto Full Code. Subjective Date/time seen: 05/05/23 10:01 Interval history: NAOE. pt is without complaints Review of Systems Review of Systems: All systems reviewed & are unremarkable except as noted in HPI and below Exam Const: General: comfortable Resp: Effort & Inspection: normal respiratory effort Cardio: Rate: regular rate Rhythm: regular rhythm GI: Inspection: non-distended Auscultation: normal bowel sounds Objective Data Vital Signs Vital Signs: Vital Signs - 24 hr 05/04/23 14:00 05/04/23 20:00 05/04/23 22:00 Temperature 98.3 F 96.7 F L Pulse Rate 81 78 Respiratory Rate 22 H 14 Blood Pressure 118/50 L 132/72 Pulse Oximetry 94 96 Oxygen Delivery Room Air 05/05/23 05:56 05/05/23 08:00 Temperature 97.0 F L Pulse Rate 84 Respiratory Rate 18 Blood Pressure 126/51 L Pulse Oximetry 95 Oxygen Delivery Room Air Intake/Output Intake/Output: Intake & Output 05/02/23 05/03/23 05/04/23 05/05/23 23:59 23:59 23:59 23:59 Intake Total 1100 4600 2326 958 Output Total 300 Balance 1100 4300 2326 958 Meds/Results Medications: Active Medications Generic Name Dose Route Start Last Admin Trade Name Freq PRN Reason Stop Dose Admin Acetaminophen 650 mg 05/03/23 15:19 05/03/23 18:53 Acetaminophen 325 Mg Tablet PO 650 mg Q6H PRN Administration Mild Pain (1-3) or Fever Albuterol 2 puff 05/02/23 00:31 Albuterol Sulfate (*Sp) Aerosol 1 Puff INHALATION QID PRN Wheezing Bupropion HCl 300 mg 05/04/23 09:00 05/05/23 08:48 Bupropion Hcl Xl (24 Hr) 150 Mg Tabcr PO 300 mg QAM STEVEN Administration Carbidopa/Levodopa 1 tablet 05/03/23 17:00 05/05/23 08:48 Carbidopa/Levodopa 25/100 Mg Cr Tablet PO 1 tablet TID STEVEN Administration Clonazepam 0.5 mg 05/03/23 15:44 05/03/23 20:24 Clonazepam (*Crx) 0.5 Mg Tablet PO 0.5 mg QHS PRN Administration Anxiety Dextrose 12.5 gm 05/02/23 00:33 Dextrose 50% 25 Gm/50 Ml Syringe IV PUSH PRN PRN Hypoglycemia Protocol Diltiazem HCl 240 mg 05/04/23 09:00 05/05/23 08:48 Diltiazem Hcl Cd 240 Mg Cap.24hr PO 240 mg QAM STEVEN Administration Furosemide 20 mg 05/03/23 17:00 05/05/23 08:48 Furosemide 20 Mg Tablet PO 20 mg BID STEVEN Administration Gabapentin 100 mg 05/03/23 17:00 05/05/23 08:48 Gabapentin 100 Mg Capsule PO 100 mg BID STEVEN Administration Glucagon 1 mg 05/02/23 00:33 Glucagon For Inj 1 Mg Vial IM PRN PRN Hypoglycemia Protocol Glucose 15 gm 05/02/23 00:33 Glucose Oral Gel 15 Gm Of Glucse In 37.5 Gm Tube PO PRN PRN Hypoglycemia Protocol Hydroxychloroquine Sulfate 200 mg 05/03/23 17:00 05/05/23 08:48 Hydroxychloroquine Sulfate 200 Mg Tablet PO 05/07/23 09:01 200 mg B
[2023-05-05 10:04] VITALS: O2SAT 92
[2023-05-05 11:21] LABS: Glucose Point of Care 171 mg/dl (65-105)
[2023-05-05 14:00] VITALS: BP 115/67; PULSE 64; RESP 22; TEMP 36.7; O2SAT 96
[2023-05-05 16:20] LABS: Glucose Point of Care 145 mg/dl (65-105)
[2023-05-05] MEDS: RIVAROXABAN 20 MG TABLET PO (17:57)
[2023-05-05 19:58] VITALS: BP 112/64; PULSE 88; RESP 20; TEMP 36.4; O2SAT 96
[2023-05-05 19:58] LABS: Glucose Point of Care 161 mg/dl (65-105)
[2023-05-06 05:47] VITALS: BP 114/52; PULSE 69; RESP 18; TEMP 36.3; O2SAT 95
[2023-05-06 07:54] LABS: Glucose Point of Care 116 mg/dl (65-105)
[2023-05-06] MEDS: GABAPENTIN 100 MG CAPSULE PO ×2 (08:42→16:48)
[2023-05-06] MEDS: dilTIAZem HCL CD 240 MG CAP.24HR PO (08:43)
[2023-05-06] MEDS: buPROPion HCL XL (24 HR) 150 MG TABCR 300 MG PO (08:44)
[2023-05-06] MEDS: SPIRONOLACTONE 25 MG TABLET PO (08:44)
[2023-05-06] MEDS: CARBIDOPA/LEVODOPA 25/100 MG CR TABLET 1 TABLET PO ×3 (08:44→16:48)
[2023-05-06] MEDS: HYDROXYCHLOROQUINE SULFATE 200 MG TABLET PO ×2 (08:45→16:48)
[2023-05-06] MEDS: MIRABEGRON 25 MG ER TABLET PO (08:45)
[2023-05-06] MEDS: FUROSEMIDE 20 MG TABLET PO ×2 (08:46→16:48)
[2023-05-06] MEDS: INSULIN GLARGINE (*BKC) 100 UNITS/ML 18 UNITS SUB-Q (08:47)
[2023-05-06 11:38] LABS: Glucose Point of Care 173 mg/dl (65-105)
[2023-05-06 14:00] VITALS: BP 120/54; PULSE 62; RESP 16; TEMP 36.9; O2SAT 99
[2023-05-06 16:38] LABS: Glucose Point of Care 187 mg/dl (65-105)
[2023-05-06] MEDS: RIVAROXABAN 20 MG TABLET PO (16:48)
--- NOTE | 2023-05-06 18:54 | PM.IMPN ---
Progress Note: A&P Assessment and Plan (1) Immunosuppression due to drug therapy: Code(s): D84.821 - Immunodeficiency due to drugs; Z79.899 - Other geological manager (current) drug therapy Status: Chronic (2) Rheumatoid arthritis: Code(s): M06.9 - Rheumatoid arthritis, unspecified Status: Chronic (3) Parkinson's disease: Code(s): G20.A1 - Parkinson's disease without dyskinesia, without mention of fluctuations Status: Chronic (4) Insulin dependent diabetes mellitus: Status: Chronic (5) Morbid obesity with BMI of 40.0-44.9, adult: Code(s): E66.01 - Morbid (severe) obesity due to excess calories; Z68.41 - Body mass index [BMI] 40.0-44.9, adult Status: Acute (6) Anticoagulant long-term use: Code(s): Z79.01 - longterm (current) use of anticoagulants Status: Acute (7) Atrial fibrillation: Code(s): I48.91 - Unspecified atrial fibrillation Status: Chronic (8) AMS (altered mental status): Code(s): R41.82 - Altered mental status, unspecified Status: Acute (9) Hypoglycemia: Code(s): E16.2 - Hypoglycemia, unspecified Status: Acute (10) Acute urinary tract infection: Code(s): N39.0 - Urinary tract infection, site not specified Status: Acute (11) Ileus: Code(s): K56.7 - Ileus, unspecified Status: Acute (12) Anxiety: Code(s): F41.9 - Anxiety disorder, unspecified Status: Acute (13) Insomnia: Code(s): G47.00 - Insomnia, unspecified Status: Acute Plan 68F w/ PMH morbid obesity, IDDM, anxiety, a fib on anticoagulation, RA on immunosuppression, parkinson's disease, presents with altered mental status from SNF. 1) altered mental status - likely 2/2 to UTI, hypoglycemia - resolved. CTM 2) hypoglycemia, IDDM - she vomited once prior to presentation and then shortly after had hypoglycemia - resolved. LDISS started with accuchecks. she is eating plenty 3) UTI w/ sespis w/o shock - pending urine cultures - ceftriaxone started 05/01 - WBC 16.4 --> 10.3 - discharge on PO abx. improved - restarted her on keflex for 5 days, this was not continued on dc. recommended to her cranberry juice for uti prevention, in moderation due to hx of DM 5) Ileus - vomited once prior to admission, but she denies any abdominal pain or nausea - general surgery consulted. NG tube placed and removed. she is passing stool and tolerating diet - benign abdominal exam 6) a fib - restart AC on 05/03 - rate controlled 05/03 restart all home meds since NG tube is out and she's tolerating diet FEN: diabetic diet. saline lock IV GI prophylaxis: protonix DVT prophylaxis: ICD's and her usual AC Lines: pIV Code Status: Full code she is returning to rehab tomorrow pending insurance auth Subjective Date/time seen: 05/06/23 18:54 Interval history: denies any complaints Review of Systems Review of Systems: reports urinary frequency/urgency but denies burning. keflex was not continued for supposed dc Exam Narrative: Const:?? General: comfortab le and no acute di stress Eyes:?? Pupils: Equal, rou nd and reactive pu pils present Resp:?? Effort & Inspectio n: normal respirat ory effort? Auscul tation: clear to a uscultation bilate rally Cardio:?? Rate: regular rate ? Rhythm: regular rhythm GI:?? Inspection: non-di stended? GI Palp: Yes Soft to palpat ion and No Tendern ess to palpation p resent (GI) Extrem:?? General: no edema Objective Data Vital Signs Vital Signs: Vital Signs - 24 hr 05/05/23 19:58 1
[2023-05-06] MEDS: CEPHALEXIN 250 MG CAPSULE PO (19:53)
[2023-05-06 20:32] LABS: Glucose Point of Care 165 mg/dl (65-105)
[2023-05-06 21:18] VITALS: BP 127/74; PULSE 68; RESP 13; TEMP 37; O2SAT 95
[2023-05-07] MEDS: CEPHALEXIN 250 MG CAPSULE PO ×3 (00:01→11:09)
[2023-05-07 05:22] VITALS: BP 103/45; PULSE 66; RESP 13; TEMP 36.6; O2SAT 93
[2023-05-07 08:14] LABS: Glucose Point of Care 173 mg/dl (65-105)
[2023-05-07] MEDS: GABAPENTIN 100 MG CAPSULE PO (08:44)
[2023-05-07] MEDS: FUROSEMIDE 20 MG TABLET PO (08:45)
[2023-05-07] MEDS: CARBIDOPA/LEVODOPA 25/100 MG CR TABLET 1 TABLET PO ×2 (08:45→12:08)
[2023-05-07] MEDS: HYDROXYCHLOROQUINE SULFATE 200 MG TABLET PO (08:45)
[2023-05-07] MEDS: MIRABEGRON 25 MG ER TABLET PO (08:45)
[2023-05-07] MEDS: buPROPion HCL XL (24 HR) 150 MG TABCR 300 MG PO (08:46)
[2023-05-07] MEDS: dilTIAZem HCL CD 240 MG CAP.24HR PO (08:46)
[2023-05-07] MEDS: SPIRONOLACTONE 25 MG TABLET PO (08:46)
[2023-05-07] MEDS: INSULIN GLARGINE (*BKC) 100 UNITS/ML 18 UNITS SUB-Q (08:47)
[2023-05-07 09:09] VITALS: O2SAT 93
--- NOTE | 2023-05-07 10:29 | PM.IMPN ---
Progress Note: A&P Assessment and Plan (1) Immunosuppression due to drug therapy: Code(s): D84.821 - Immunodeficiency due to drugs; Z79.899 - Other supervisor intermediates (current) drug therapy Status: Chronic (2) Rheumatoid arthritis: Code(s): M06.9 - Rheumatoid arthritis, unspecified Status: Chronic (3) Parkinson's disease: Code(s): G20.A1 - Parkinson's disease without dyskinesia, without mention of fluctuations Status: Chronic (4) Insulin dependent diabetes mellitus: Status: Chronic (5) Morbid obesity with BMI of 40.0-44.9, adult: Code(s): E66.01 - Morbid (severe) obesity due to excess calories; Z68.41 - Body mass index [BMI] 40.0-44.9, adult Status: Acute (6) Anticoagulant long-term use: Code(s): Z79.01 - [facility] (current) use of anticoagulants Status: Acute (7) Atrial fibrillation: Code(s): I48.91 - Unspecified atrial fibrillation Status: Chronic (8) AMS (altered mental status): Code(s): R41.82 - Altered mental status, unspecified Status: Acute (9) Hypoglycemia: Code(s): E16.2 - Hypoglycemia, unspecified Status: Acute (10) Acute urinary tract infection: Code(s): N39.0 - Urinary tract infection, site not specified Status: Acute (11) Ileus: Code(s): K56.7 - Ileus, unspecified Status: Acute (12) Anxiety: Code(s): F41.9 - Anxiety disorder, unspecified Status: Acute (13) Insomnia: Code(s): G47.00 - Insomnia, unspecified Status: Acute Plan 68F w/ PMH morbid obesity, IDDM, anxiety, a fib on anticoagulation, RA on immunosuppression, parkinson's disease, presents with altered mental status from SNF. 1) altered mental status - likely 2/2 to UTI, hypoglycemia - resolved. CTM 2) hypoglycemia, IDDM - she vomited once prior to presentation and then shortly after had hypoglycemia - resolved. LDISS started with accuchecks. she is eating plenty 3) UTI w/ sespis w/o shock - pending urine cultures - ceftriaxone started 05/01 - WBC 16.4 --> 10.3 - discharge on PO abx. improved - restarted her on keflex for 5 days, this was not continued on dc. recommended to her cranberry juice for uti prevention, in moderation due to hx of DM - doing much better since she is back on keflex 5) Ileus - vomited once prior to admission, but she denies any abdominal pain or nausea - general surgery consulted. NG tube placed and removed. she is passing stool and tolerating diet - benign abdominal exam- resolved 6) a fib - restart AC on 05/03 - rate controlled 05/03 restart all home meds since NG tube is out and she's tolerating diet FEN: diabetic diet. saline lock IV GI prophylaxis: protonix DVT prophylaxis: ICD's and her usual AC Lines: pIV Code Status: Full code she is returning to rehab tomorrow pending insurance auth Subjective Date/time seen: 05/07/23 10:29 Interval history: no complaints. urinary urgency/frequency reduced since starting keflex. Review of Systems Review of Systems: n/a Exam Narrative: Const:?? General: comfortab le, no acute distr ess, well develope d,, patient obtund ed and average bod y habitus? Nutriti onal Appearance: o bese? Orientation/ consciousness: lisset ented to person, p atient obtunded an d lethargic HENMT:?? Head: normal to in spection, normocep halic and atraumat ic? Ears: hearing grossly normal adry aterally? Face/Nos e/Sinus: normal fa cial exam? Face an d sinus: normal fa cial exam Eyes:?? General: appearan
[2023-05-07 12:15] LABS: Glucose Point of Care 257 mg/dl (65-105)
[2023-05-07] MEDS: INSULIN ASPART (*BKC) 100 UNITS/ML SUB-Q (12:41)
--- NOTE | 2023-05-07 13:41 | PCPTNOTE ---
Attempted to see patient for Physical Therapy this afternoon. First time patient was eating and second time patient was on the phone. Patient acknowledged therapist and stated that she would be off the phone in a minute. Therapist waited several minutes and patient continued to talk on the phone. RN notified.
[2023-05-07 14:00] VITALS: BP 107/52; PULSE 106; RESP 14; TEMP 36.6; O2SAT 97
--- NOTE | 2023-05-07 14:11 | PM.DS ---
DS: Admitting Diagnosis Discharge Date 05/07/23 Admitting Diagnosis altered mental status DS: Discharge Diagnosis Discharge Diagnosis Plan 68F w/ PMH morbid obesity, IDDM, anxiety, a fib on anticoagulation, RA on immunosuppression, parkinson's disease, presents with altered mental status from SNF. 1) altered mental status - likely 2/2 to UTI, hypoglycemia - resolved. CTM 2) hypoglycemia, IDDM - she vomited once prior to presentation and then shortly after had hypoglycemia - resolved. LDISS started with accuchecks. she is eating plenty 3) UTI w/ sespis w/o shock - pending urine cultures - ceftriaxone started 05/01 - WBC 16.4 --> 10.3 - discharge on PO abx. improved - restarted her on keflex for 5 days, this was not continued on dc. recommended to her cranberry juice for uti prevention, in moderation due to hx of DM - doing much better since she is back on keflex 5) Ileus - vomited once prior to admission, but she denies any abdominal pain or nausea - general surgery consulted. NG tube placed and removed. she is passing stool and tolerating diet - benign abdominal exam- resolved 6) a fib - restart AC on 05/03 - rate controlled 05/03 restart all home meds since NG tube is out and she's tolerating diet FEN: diabetic diet. saline lock IV GI prophylaxis: protonix DVT prophylaxis: ICD's and her usual AC Lines: pIV Code Status: Full code DS: Summary Hospital Course Reason for hospitalization: altered mental status Hospital Course: Narrative: This is a 68-year-old female with past medical history significant for atrial fibrillation rate controlled and anticoagulated, insulin-dependent diabetes mellitus, generalized anxiety disorder, dyslipidemia, COPD.? Patient was brought for evaluation to the emergency room due to altered mental status patient is currently residing at a [facility]habilitation was found to have a blood glucose in the 40's in emergency room repeat blood glucose was again low.? Preliminary workup was significant for urinalysis with numerous WBCs present, a CT of abdomen and pelvis showed ileus.? Patient is unable to give any history due to confusion, obtundation, delirium. 05/03 Patient most likely had a small bowel ileus due to her urinary tract infection.? No obvious evidence of a high-grade mechanical small bowel obstruction is seen on small-bowel series.? She is now having multiple bowel movements and tolerating diet.? No surgical intervention is needed.? Disposition as per hospitalist service.? Surgery will sign off. 05/06 Restarted keflex for uti see a/p section Status at Discharge Cognitive/behavioral status at discharge: good Time Spent with Patient Time attestation: Total time spent providing and/or coordinating discharge services: 30 min Exam Narrative: Const:?? General: comfortab le and no acute di stress Eyes:?? Pupils: Equal, rou nd and reactive pu pils present Resp:?? Effort & Inspectio n: normal respirat ory effort Cardio:?? Rate: regular rate ? Rhythm: regular rhythm GI:?? Inspection: non-di stended? GI Palp: Yes Soft to palpat ion, No Firmness t o palpation presen t (GI), No Tendern ess to palpation p resent (GI) and No Guarding due to p alpation present ( GI)? Auscultation: normal bowel soun ds Extrem:?? General: no edema DS: Data Data Completed and Pending Labs on day of discharge: Labs from last 24 hours 05/07/23 05/07/23 05/06/23 12:05 07:52 20:13 POC Capillary Glucose 257 H 173 H 165 H
[2023-05-07] MEDS: ALPRAZolam (*CRX) 0.25 MG TABLET PO (14:19)
[2023-05-07 15:05] LABS: SARS-CoV-2 RNA PCR Negative (Negative)
== END 2023-05-07 16:40 | DRG 872 ==
LOC: ANHED 20:20 → ANHIMU 22:28 → ANH3MEDSUR 05-04 11:46 → ANHIMU 05-08 11:48
PROVIDERS: Internal Medicine; Admitting Provider Internal Medicine; Emergency Provider Student in an Organized Health Care Education/Training Program; Visit Provider General Practice
DX: A41.9 Sepsis, unspecified organism (principal); N39.0 Urinary tract infection, site not specified; K56.7 Ileus, unspecified; Z68.41 Body mass index [BMI] 40.0-44.9, adult; D84.821 Immunodeficiency due to drugs; I48.20 Chronic atrial fibrillation, unspecified; E11.649 Type 2 diabetes mellitus with hypoglycemia without coma; M06.9 Rheumatoid arthritis, unspecified; R41.82 Altered mental status, unspecified; G20.A1 Parkinson's disease without dyskinesia, without mention of fluctuations; E66.01 Morbid (severe) obesity due to excess calories; R91.1 Solitary pulmonary nodule; F41.1 Generalized anxiety disorder; E78.5 Hyperlipidemia, unspecified; J44.9 Chronic obstructive pulmonary disease, unspecified; Z11.52 Encounter for screening for COVID-19; Z79.01 Long term (current) use of anticoagulants; Z79.4 Long term (current) use of insulin; Z79.899 Other long term (current) drug therapy; Z90.49 Acquired absence of other specified parts of digestive tract; Z90.710 Acquired absence of both cervix and uterus; Z98.84 Bariatric surgery status
CPT/HCPCS: 36415; 70450; 71045; 73060; 74176; 74250; 80048; 80053; 81001; 82140; 82948; 83735; 84100; 84145; 84443; 84484; 85025; 87077; 87086; 87186; 87635; 93005; 96365; 96375; 97110; 97116; 97161; 97166; 97530; 97535; 99285; A9270; C9113; J0696; J1644; J1815; J7042; J7070